=== PATIENT | female | born 1955 | race Caucasian/White ===

== ENCOUNTER 2018-01-27 13:50 | Inpatient (IN) | payer BC, MEDICAID ==
[~2018-01-27] VITALS: Ht 162.6 cm; Wt 90.3 kg
[2018-01-27] MEDS ORDERED: NKM (14:09)
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
[2018-01-27 17:12] LABS: BASOPHILS % (AUTO) 0.9 % (0.0-2.0); EOSINOPHILS % (AUTO) 2.8 % (0.0-3.0); HEMATOCRIT 38.1 % (37.0-47.0); HEMOGLOBIN 13.1 G/DL (12.0-16.0); LYMPHOCYTES % (AUTO) 22.9 % (20.0-45.0); MEAN CORPUSCULAR VOLUME 81 FL (80-99); MONOCYTES % (AUTO) 4.7 % (1.0-10.0); NEUTROPHILS % (AUTO) 68.7 % (45.0-75.0); PLATELET COUNT 271 K/UL (150-450); RED BLOOD COUNT 4.73 M/UL (4.20-5.40); WHITE BLOOD COUNT 10.2 K/UL (4.8-10.8)
[2018-01-27 17:13] LABS: ANION GAP 9 mmol/L (5-15); BLOOD UREA NITROGEN 15 mg/dL (7-18); CARBON DIOXIDE 26 MMOL/L (21-32); CHLORIDE 106 MMOL/L (98-107); CREATININE 0.9 MG/DL (0.55-1.30); POTASSIUM 3.6 MMOL/L (3.5-5.1); SODIUM 141 MMOL/L (136-145)
[2018-01-27 17:25] LABS: ALANINE AMINOTRANSFERASE 34 U/L (12-78); ALBUMIN 3.8 G/DL (3.4-5.0); ALBUMIN/GLOBULIN RATIO 0.9 (1.0-2.7); ALKALINE PHOSPHATASE 81 U/L (46-116); ASPARTATE AMINO TRANSFERASE 22 U/L (15-37); BILIRUBIN,TOTAL 0.5 MG/DL (0.2-1.0); CKMB < 0.5 NG/ML (0.0-3.6); CREATINE KINASE 84 U/L (26-308)
[2018-01-27 17:48] VITALS: BP 122/79
[2018-01-27 21:08] VITALS: BP 139/77
[2018-01-27 21:40] VITALS: BP 142/77
[2018-01-28] VITALS: BP 110/60
[2018-01-28 04:00] VITALS: BP 116/73
[2018-01-28 08:00] VITALS: BP 111/85
[2018-01-28 08:10] LABS: BASOPHILS % (AUTO) 0.8 % (0.0-2.0); EOSINOPHILS % (AUTO) 5.5 % (0.0-3.0); HEMATOCRIT 34.2 % (37.0-47.0); HEMOGLOBIN 11.8 G/DL (12.0-16.0); LYMPHOCYTES % (AUTO) 29.4 % (20.0-45.0); MEAN CORPUSCULAR VOLUME 82 FL (80-99); MONOCYTES % (AUTO) 5.5 % (1.0-10.0); NEUTROPHILS % (AUTO) 58.9 % (45.0-75.0); PLATELET COUNT 241 K/UL (150-450); RED BLOOD COUNT 4.15 M/UL (4.20-5.40); WHITE BLOOD COUNT 7.5 K/UL (4.8-10.8)
[2018-01-28 08:17] LABS: ANION GAP 6 mmol/L (5-15); BLOOD UREA NITROGEN 13 mg/dL (7-18); CALCIUM 8.4 MG/DL (8.5-10.1); CARBON DIOXIDE 28 MMOL/L (21-32); CHLORIDE 106 MMOL/L (98-107); CREATININE 0.9 MG/DL (0.55-1.30); POTASSIUM 3.9 MMOL/L (3.5-5.1); SODIUM 140 MMOL/L (136-145)
[2018-01-28] MEDS ORDERED: Docusate 100mg cap ORAL SCH (09:00)
--- NOTE | 2018-01-28 09:38 | Diagnostic Imaging Report ---
Indication: Headache Technique: Contiguous 5 mm thick transaxial imaging of the head obtained in a Siemens Sensation [address] scanner. Soft tissue and bone windows generated. Automatic Exposure Control was utilized. Total Dose length Product (DLP): 1337.[address] Dose Index Volume (CTDIvol): 70.38 mGy Comparison: none Findings: The size and configuration of the cortical sulci, basal cisterns, and ventricles are within normal limits for age. There is no mass effect, midline shift, or edema identified. There is no evidence of acute hemorrhage or abnormal intra-axial or extra-axial fluid collections. The bones and soft tissues are unremarkable. There is mild mucosal thickening within the ethmoid sinus. Impression: No mass effect, edema or acute bleed. Sinusitis The CT scanner at [facility] is accredited by the [employer] and the scans are performed using dose optimization techniques as appropriate to a performed exam including Automatic Exposure control.
[2018-01-28 12:00] VITALS: BP 128/67
--- NOTE | 2018-01-28 12:38 | Discharge Instructions ---
Discharge Instructions Discharge Instructions Call MD/Return to Hospital if: If patient perists Services at Discharge: other - None Diet: regular Resume Normal Activity?: Yes Activity: light activity Pneumonia Vaccine: vaccine not indicated Influenza Vaccine (Jul to Dec): vaccine not indicated Follow Up Orders Patient to follow up with her PCP next week. She has ontacted them and made appointment For Congestive Heart Failure Reminder Report to your physician any weight gain of 5 pounds or more in one week. Florentino Saleem M.D. Jan 28, 2018 12:38
--- NOTE | 2018-01-28 13:01 | Cardiac Electrophysiology PN ---
Subjective Subjective Cardiology consult dictated and DW RN [id number] Objective Last 24 Hour Vital Signs Date Time Temp Pulse Resp B/P (MAP) Pulse Ox O2 Delivery O2 Flow Rate FiO2 01/28/18 09:59 96.7 01/28/18 09:00 96.7 01/28/18 08:00 96.7 62 18 111/85 96 Room Air 96.7 01/28/18 07:38 60 22 94 21 01/28/18 04:59 84 18 97 Facial 30 01/28/18 04:00 97.7 64 20 116/73 98 Room Air 97.7 01/28/18 04:00 57 01/28/18 03:32 86 18 98 Facial 30 01/28/18 00:43 85 18 96 Facial 30 01/28/18 00:00 97.5 71 18 110/60 95 Room Air 97.5 01/28/18 00:00 51 01/27/18 21:45 98.2 60 18 139/77 97 Room Air 98.2 01/27/18 21:40 96.6 65 18 142/77 97 Room Air 96.6 01/27/18 21:08 98.2 60 18 139/77 97 Room Air 98.2 01/27/18 17:48 97.9 79 18 122/79 97 Room Air 97.9 01/27/18 14:47 98.0 01/27/18 14:05 82 16 01/27/18 14:02 98.0 82 16 158/83 94 Room Air 98.1 Intake and Output 01/27/18 01/28/18 19:00 07:00 Intake Total 0 ml Balance 0 ml Intake Oral 0 ml # Voids 1 Laboratory Tests Test 01/27/18 16:27 01/28/18 06:30 White Blood Count 10.2 K/UL (4.8-10.8) 7.5 K/UL (4.8-10.8) Red Blood Count 4.73 M/UL (4.20-5.40) 4.15 M/UL (4.20-5.40) L Hemoglobin 13.1 G/DL (12.0-16.0) 11.8 G/DL (12.0-16.0) L Hematocrit 38.1 % (37.0-47.0) 34.2 % (37.0-47.0) L Mean Corpuscular Volume 81 FL (80-99) 82 FL (80-99) Mean Corpuscular Hemoglobin 27.6 PG (27.0-31.0) 28.4 PG (27.0-31.0) Mean Corpuscular Hemoglobin Concent 34.3 G/DL (32.0-36.0) 34.5 G/DL (32.0-36.0) Red Cell Distribution Width 12.0 % (11.6-14.8) 12.0 % (11.6-14.8) Platelet Count 271 K/UL (150-450) 241 K/UL (150-450) Mean Platelet Volume 7.1 FL (6.5-10.1) 7.3 FL (6.5-10.1) Neutrophils (%) (Auto) 68.7 % (45.0-75.0) 58.9 % (45.0-75.0) Lymphocytes (%) (Auto) 22.9 % (20.0-45.0) 29.4 % (20.0-45.0) Monocytes (%) (Auto) 4.7 % (1.0-10.0) 5.5 % (1.0-10.0) Eosinophils (%) (Auto) 2.8 % (0.0-3.0) 5.5 % (0.0-3.0) H Basophils (%) (Auto) 0.9 % (0.0-2.0) 0.8 % (0.0-2.0) Sodium Level 141 MMOL/L (136-145) 140 MMOL/L (136-145) Potassium Level 3.6 MMOL/L (3.5-5.1) 3.9 MMOL/L (3.5-5.1) Chloride Level 106 MMOL/L (98-107) 106 MMOL/L (98-107) Carbon Dioxide Level 26 MMOL/L (21-32) 28 MMOL/L (21-32) Anion Gap 9 mmol/L (5-15) 6 mmol/L (5-15) Blood Urea Nitrogen 15 mg/dL (7-18) 13 mg/dL (7-18) Creatinine 0.9 MG/DL (0.55-1.30) 0.9 MG/DL (0.55-1.30) Estimat Glomerular Filtration Rate > 60 mL/min (>60) > 60 mL/min (>60) Glucose Level 125 MG/DL (74-106) H 99 MG/DL (74-106) Calcium Level 9.0 MG/DL (8.5-10.1) 8.4 MG/DL (8.5-10.1) L Total Bilirubin 0.5 MG/DL (0.2-1.0) Aspartate Amino Transf (AST/SGOT) 22 U/L (15-37) Alanine Aminotransferase (ALT/SGPT) 34 U/L (12-78) Alkaline Phosphatase 81 U/L (46-116) Total Creatine Kinase 84 U/L (26-308) Creatine Kinase MB < 0.5 NG/ML (0.0-3.6) Creatine Kinase MB Relative Index 0.5 Troponin I 0.000 ng/mL (0.000-0.056) Total Protein 7.8 G/DL (6.4-8.2) Albumin 3.8 G/DL (3.4-5.0) Globulin 4.0 g/dL Albumin/Globulin Ratio 0.9 (1.0-2.7) Dixon Garcia MD Jan 28, 2018 13:01
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
--- NOTE | 2018-01-29 17:43 | Cardiology Report ---
APPROVED REPORT EKG Measurement Heart [id number] Normal sinus rhythm Normal ECG
--- NOTE | 2018-01-30 10:57 | Cardiology Report ---
APPROVED REPORT EXAM: Two-dimensional and M-mode echocardiogram with Doppler and color Doppler. INDICATION PERICARDIAL EFFUSION M-Mode DIMENSIONS IVSd1.0 (0.7-1.1cm)Left Atrium (MM)2.9 (1.6-4.0cm) LVDd6.2 (3.5-5.6cm)Aortic Root3.4 (2.0-3.7cm) PWd1.0 (0.7-1.1cm)Aortic Cusp Exc.1.7 (1.5-2.0cm) IVSs1.5 cm LVDs4.3 (2.5-4.0cm) PWs1.6 cm Normal left ventricular chamber size, systolic function and wall motion Left ventricular ejection fraction estimated to be 60-65%. No evidence of left ventricular hypertrophy . Trace posterior pericardial effusion. All other cardiac chamber sizes are within normal limits. Focal aortic valve sclerosis with adequate cusp excursion. mildly Thickened mitral valve leaflets with normal excursion. Mitral annulus and aortic root calcification. pulmonic valve not well visualized . Normal tricuspid valve structure. IVC at normal size with physiologic collapse . A color flow and spectral Doppler study was performed and revealed: No aortic regurgitation. Trace mitral regurgitation. Normal left ventricular diastolic function . Mild tricuspid regurgitation. Tricuspid systolic velocities suggests normal peak right ventricular systolic pressure of 30mmHg.
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
== END 2018-01-28 15:19 | disposition home or self-care (01) | DRG 144 ==
LOC: EMR 15:05 → EDBEDREQ 20:14 → 2E 20:42
DX: S29.9XXA Unspecified injury of thorax, initial encounter (principal); J44.9 Chronic obstructive pulmonary disease, unspecified; R51 Headache; R07.89 Other chest pain; V03.10XA Pedestrian on foot injured in collision with car, pick-up truck or van in traffic accident, initial encounter; Y92.414 Local residential or business street as the place of occurrence of the external cause; Z88.0 Allergy status to penicillin; Z88.2 Allergy status to sulfonamides; G47.30 Sleep apnea, unspecified
CPT/HCPCS: 36415; 70450; 71250; 72131; 72192; 80048; 80053; 82550; 82553; 84484; 85025; 93005; 93306; 94660; 99285

== ENCOUNTER 2019-11-27 21:57 | Emergency (ER) | payer MEDICAID ==
[~2019-11-27] VITALS: Ht 162.6 cm; Wt 88.5 kg
[~2019-11-27 21:57] MED LIST: NKM
--- NOTE | 2019-11-27 22:05 | NUR ---
Note traci in EDM - 11/27/19 at 2305 by [email or web address] ED Nurse Note: PT WALKED IN TO ED C/O ELEVATED BP OF 156/91 AT HOME WITH N/V, CHEST TIGHTNESS, DIZZINESS WITH ONSET 1800 TODAY. PT STATES TAKING BENICAR 20MG.
--- NOTE | 2019-11-27 22:06 | NUR ---
ED Nurse Note: PT WALKED IN TO ED C/O ELEVATED BP OF 156/91 AT HOME WITH N/V, CHEST TIGHTNESS, DIZZINESS WITH ONSET 1800 TODAY. PT STATES TAKING BENICAR 20MG. VSS, NAD. ERMD AT BEDSIDE
[2019-11-27] MEDS ORDERED: BENICAR20 MG ORAL (22:15)
--- NOTE | 2019-11-27 22:42 | NUR ---
ED Nurse Note: pt went for ct via wheelchair
--- NOTE | 2019-11-27 22:42 | NUR ---
blood drawn and sent to lab
[2019-11-27 22:47] LABS: BASOPHILS % (AUTO) 0.7 % (0.0-2.0); EOSINOPHILS % (AUTO) 4.5 % (0.0-3.0); HEMATOCRIT 37.7 % (37.0-47.0); HEMOGLOBIN 12.6 G/DL (12.0-16.0); LYMPHOCYTES % (AUTO) 32.8 % (20.0-45.0); MEAN CORPUSCULAR VOLUME 82 FL (80-99); MONOCYTES % (AUTO) 4.2 % (1.0-10.0); NEUTROPHILS % (AUTO) 57.9 % (45.0-75.0); PLATELET COUNT 290 K/UL (150-450); RED BLOOD COUNT 4.62 M/UL (4.20-5.40); RED CELL DISTRIBUTION WIDTH 11.8 % (11.6-14.8); WHITE BLOOD COUNT 9.3 K/UL (4.8-10.8)
--- NOTE | 2019-11-27 22:53 | NUR ---
ED Nurse Note: pt back from ct. 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 ermd aware
--- NOTE | 2019-11-27 23:00 | NUR ---
ED Nurse Note: patient refused zofran. ermd aware
--- NOTE | 2019-11-27 23:01 | Diagnostic Imaging Report ---
Indication: Headache Technique: Contiguous 5 mm thick transaxial imaging of the head obtained in a Siemens Sensation [address] scanner. Soft tissue and bone windows generated. Automatic Exposure Control was utilized. Total Dose length Product (DLP): 1067.9mGycm CT Dose Index Volume (CTDIvol): 53.4 mGy Comparison: 01/28/2018 Findings: The size and configuration of the cortical sulci, basal cisterns, and ventricles are within normal limits for age. There is no mass effect, midline shift, or edema identified. There is no evidence of acute hemorrhage or abnormal intra-axial or extra-axial fluid collections. The bones and soft tissues are unremarkable. Mucosal thickening noted within the visualized paranasal sinuses. Impression: No mass effect, edema or acute bleed. Sinusitis The CT scanner at [facility] is accredited by the [employer] and the scans are performed using dose optimization techniques as appropriate to a performed exam including Automatic Exposure control.
--- NOTE | 2019-11-27 23:03 | NUR ---
ED Nurse Note: patient is unable to provide urine at this time. will attempt to obtain at a later time.
[2019-11-27 23:05] VITALS: BP 134/78
[2019-11-27 23:10] LABS: ANION GAP 7 mmol/L (5-15); BLOOD UREA NITROGEN 15 mg/dL (7-18); CALCIUM 9.1 MG/DL (8.5-10.1); CARBON DIOXIDE 31 MMOL/L (21-32); CHLORIDE 105 MMOL/L (98-107); CREATININE 0.8 MG/DL (0.55-1.30); POTASSIUM 4.4 MMOL/L (3.5-5.1); SODIUM 143 MMOL/L (136-145)
[2019-11-27 23:14] LABS: ALANINE AMINOTRANSFERASE 18 U/L (12-78); ALBUMIN 3.6 G/DL (3.4-5.0); ALKALINE PHOSPHATASE 84 U/L (46-116); ASPARTATE AMINO TRANSFERASE 18 U/L (15-37); BILIRUBIN,TOTAL 0.2 MG/DL (0.2-1.0)
[2019-11-27] MEDS ORDERED: FIORICET1 EA ORAL (23:53)
[2019-11-27] MEDS ORDERED: ONDANSETRON ODT4 MG BC (23:53)
[2019-11-27 23:57] VITALS: BP 132/72
[2019-11-28] VITALS: BP 132/72
--- NOTE | 2019-11-28 | NUR ---
ER DISCHARGE NOTE: Patient is cleared to be discharged per ERMD, pt is aox4, on room air, with stable vital signs. pt was given dc and prescription instructions, pt was able to verbalize understanding, pt id band and iv site removed without complications. pt is able to ambulate with steady gait. pt took all belongings.
--- NOTE | 2019-11-28 03:29 | Emergency Room Report ---
History of Present Illness General Chief Complaint: Hypertension Present Illness HPI Patient is a 63-year-old female presents after increased headache and chest discomfort. She reports having a gradual onset of symptoms. Associated nausea without vomiting reports having some tightness to the chest as well as nonproductive cough. Prior history of hypertension. She reports taking blood pressure medications and having noticed her blood pressure being elevated earlier in the day. Reports having some prior history of headaches in the past. States that she had imaging of her head approximately 2 years prior for head injury. Allergies: Coded Allergies: ASCORBIC ACID (Unverified Allergy, Unknown, 01/27/18) PENICILLINS (Verified Allergy, Unknown, 01/27/18) SULFA (SULFONAMIDE ANTIBIOTICS) (Unverified Allergy, Unknown, 01/27/18) Patient History Past Medical History: see triage record Reviewed Nursing Documentation: PMH: Agreed; PSxH: Agreed Nursing Documentation-PMH Hx Cardiac Problems: No Hx Cancer: No Hx Gastrointestinal Problems: No Hx Neurological Problems: No Review of Systems All Other Systems: negative except mentioned in HPI Physical Exam Vital Signs Date Time Temp Pulse Resp B/P (MAP) Pulse Ox O2 Delivery O2 Flow Rate FiO2 11/27/19 22:04 97.5 72 18 149/80 (103) 96 Room Air Sp02 EP Interpretation: reviewed, normal General Appearance: normal inspection, well appearing, no apparent distress, alert, GCS 15 Head: atraumatic ENT: normal ENT inspection, hearing grossly normal, normal voice Neck: normal inspection, full range of motion, supple, no bony tend Respiratory: normal inspection, lungs clear, normal breath sounds, no respiratory distress, no retraction, no wheezing Cardiovascular #1: regular rate, rhythm, no edema Gastrointestinal: normal inspection, normal bowel sounds, non tender, soft, no guarding, no hernia Genitourinary: no CVA tenderness Musculoskeletal: normal inspection, back normal, normal range of motion Neurologic: alert, motor strength/tone normal, developmental electronics assembler III-XII nml as tested, oriented x3, responsive, speech normal, normal inspection Psychiatric: normal inspection, judgement/insight normal, mood/affect normal Medical Decision Making Diagnostic Impression: Primary Impression: Hypertension Additional Impression: Headache ER Course Patient presented for headache. Differential diagnosis include was not limited to intracranial hemorrhage, viral cephalgia, electrolyte abnormality, hypertensive crisis among others. CT imaging did not show any evidence of intracranial hemorrhage. Patient was advised outpatient cardiac work-up. She is given medications for symptomatic treatment. Patient's troponin was noted to be negative. Patient is advised to return if any worsening condition or if any changes in status that are concerning. This report is dictated with [employer] trimming operator software which may occasionally lead to discrepancies related to use of this software. Labs Test 11/27/19 21:40 White Blood Count 9.3 K/UL (4.8-10.8) Red Blood Count 4.62 M/UL (4.20-5.40) Hemoglobin 12.6 G/DL (12.0-16.0) Hematocrit 37.7 % (37.0-47.0) Mean Corpuscular Volume 82 FL (80-99) Mean Corpuscular Hemoglobin 27.3 PG (27.0-31.0) Mean Corpuscular Hemoglobin Concent 33.5 G/DL (32.0-36.0) Red Cell Distribution Width 11.8 % (11.6-14.8) Platelet Count 290 K/UL (150-450) Mean Platelet Volume 7.1 FL (6.5-10.1) Neutrophils (%) (Auto) 57.9 % (45.0-75.0) Lymphocytes (%) (Auto) 32.8 % (20.0-45.0) Monocytes (%) (Auto) 4.2 % (1.0-10.0) Eosinophils (%) (Auto) 4.5 % (0.0-3.0) Basophils (%) (Auto) 0.7 % (0.0-2.0) Sodium Level 143 MMOL/L (136-145) Potassium Level 4.4 MMOL/L (3.5-5.1) Chloride Level 105 MMOL/L (98-107) Carbon Dioxide Level 31 MMOL/L (21-32) Anion Gap 7 mmol/L (5-15) Blood Urea Nitrogen 15 mg/dL (7-18) Creatinine 0.8 MG/DL (0.55-1.30) Estimat Glomerular Filtration Rate > 60 mL/min (>60) Glucose Level 131 MG/DL (74-106) Calcium Level 9.1 MG/DL (8.5-10.1) Total Bilirubin 0.2 MG/DL (0.2-1.0) Aspartate Amino Transf (AST/SGOT) 18 U/L (15-37) Alanine Aminotransferase (ALT/SGPT) 18 U/L (12-78) Alkaline Phosphatase 84 U/L (46-116) Troponin I 0.000 ng/mL (0.000-0.056) Total Protein 7.2 G/DL (6.4-8.2) Albumin 3.6 G/DL (3.4-5.0) Globulin 3.6 g/dL Albumin/Globulin Ratio 1.0 (1.0-2.7) EKG Diagnostic Results Rate: normal Rhythm: NSR ST Segments: no acute changes Last Vital Signs Date Time Temp Pulse Resp B/P (MAP) Pulse Ox O2 Delivery O2 Flow Rate FiO2 11/28/19 00:00 98.1 68 18 132/72 98 Room Air Status: improved Disposition: HOME, SELF-CARE Condition: Stable Scripts Acetamin/Butalbital/Caffeine* (FIORICET*) 1 Ea Tab 1 TAB ORAL Q6H, #15 TAB 0 Refills Prov: Vlad Khoury MD 11/27/19 Ondansetron Odt* (ZOFRAN ODT*) 4 Mg Tab.rapdis 4 MG BC EVERY 8 HOURS PRN for Nausea & Vomiting, #10 TAB 0 Refills Prov: Vlad Khoury MD 11/27/19 Referrals: [facility],REFERRING (PCP) Patient Instructions: General Headache Without Cause Vlad Khoury MD Nov 28, 2019 03:29
--- NOTE | 2019-11-28 11:53 | Diagnostic Imaging Report ---
Indication: Dyspnea Comparison: None A single view chest radiograph was obtained. Findings: Cardiomediastinal appearance is within normal limits for age. The lungs are clear. Pulmonary vascularity is appropriate. The diaphragmatic contour is smooth and costophrenic angles are sharp. No pleural effusions are identified. Right convex thoracic scoliosis noted. Impression: No acute findings
== END 2019-11-28 | disposition home or self-care (01) ==
LOC: EMR 22:24
DX: I10 Essential (primary) hypertension (principal); R51 Headache; Z88.0 Allergy status to penicillin; Z88.2 Allergy status to sulfonamides; Z91.018 Allergy to other foods
CPT/HCPCS: 36415; 70450; 71045; 80053; 84484; 85025; Z7502; 99284; J2405